=== PATIENT | female | born 1995 | race Hispanic/Latino ===

== ENCOUNTER 2020-01-11 09:52 | Outpatient (CLI) | payer MEDICAID | END 2020-01-11 09:53 | disposition home or self-care (01) | LOC: MADLAB 09:52 | PROVIDERS: ATTEND Family Medicine | DX: Z34.03 Encounter for supervision of normal first pregnancy, third trimester (principal) | CPT/HCPCS: 36415; 82951; 82952 ==

== ENCOUNTER 2024-06-06 22:01 | Emergency (ER) | payer SELFPAY | END 2024-06-06 23:00 | disposition home or self-care (01) | LOC: MADERS 22:01 | DX: N61.1 Abscess of the breast and nipple (principal) | CPT/HCPCS: 87070; 87205; 99283 ==